=== PATIENT | female | born 1980 | race Caucasian/White ===

== ENCOUNTER → 2023-11-04 12:37 | Outpatient (REF) | payer OTHER, SELFPAY | LOC: HWWDC 12:37 | PROVIDERS: ATTENDING PHYSICIAN Family Medicine | DX: Z12.31 Encounter for screening mammogram for malignant neoplasm of breast (principal) | CPT/HCPCS: 77063; 77067 ==

== ENCOUNTER → 2024-03-23 10:58 | Outpatient (REF) | payer OTHER, SELFPAY | LOC: HWRAD 10:58 | PROVIDERS: ATTENDING PHYSICIAN Family Medicine; REFERRING PHYSICIAN Physical Medicine & Rehabilitation | DX: M54.2 Cervicalgia (principal); M25.512 Pain in left shoulder; I10 Essential (primary) hypertension | CPT/HCPCS: 72052; 73030 ==

== ENCOUNTER → 2024-11-04 12:23 | Outpatient (REF) | payer OTHER, SELFPAY | LOC: HWWDC 12:23 | PROVIDERS: ATTENDING PHYSICIAN Family Medicine | DX: Z12.31 Encounter for screening mammogram for malignant neoplasm of breast (principal) | CPT/HCPCS: 77063; 77067 ==

== ENCOUNTER 2024-11-14 15:14 | Observation (INO) | payer OTHER, SELFPAY ==
[2024-11-14] VITALS (8 sets, daily range): BP systolic 125–159; BP diastolic 73–121; BMI 34.4; BMI 34.5
--- NOTE | 2024-11-14 12:18 | ED.GENMED ---
History of Present Illness
<Gregory Boo PA-C - Last Filed: 11/14/24 14:28>
General
Chief Complaint: Numbness
Source: patient
Exam Limitations: none
Time Seen by Provider: 11/14/24 12:06
History of Present Illness
History of Present Illness:
44-year-old female with history of hypertension on metoprolol and lisinopril thence with the onset of left-sided numbness around 45 minutes prior to my exam. She was walking around the grocery store when this started. She initially felt in the
left laurent. She then felt her face become tingly and her left arm. There is no fever. She notes 2 days ago she had a headache that was consistent with her prior migraine. No current headache. No chest pain or shortness of breath. No fevers or
rashes. She states her father of a stroke. She describes weakness in her arm. She denies any unsteadiness in gait or vision change. She denies dizziness. No prior issues similar to this in the past. No other complaints at this time
Past History
<CLAUDIO Roberts Last Filed: 11/14/24 14:28>
Past History
ED Past Medical History: Hypothyroidism and Other (Preeclampsia)
ED Past Surgical History:
Social History
Tobacco: Non-smoker
Personal:
Living: with family
Phy Exam
<Gregory Boo PA-C - Last Filed: 11/14/24 14:28>
Physical Exam
Physical Exam:
General: Well-appearing female in no acute respiratory distress
HEENT: Normocephalic pupils to light extraocular's are intact face is symmetric
Heart: Regular rate and rhythm
Lungs: Clear no wheeze
Neurologic exam: Alert and orient x 3 face is symmetric no drift on exam finger-nose [id number] intact good sensation bilaterally good strength bilaterally
Extremities: No cyanosis
Vascular: 2+ DP pulse bilaterally 2+ radial pulse bilaterally
Course
<Gregory Boo PA-C - Last Filed: 11/14/24 14:28>
Orders/Labs/Results
Orders:
Orders
11/14/24 12:17
Electrocardiogram (*1) Urgent
Reason for Study: TIA/Stroke
EKG- Treatment ONCE
Test Result ONCE
11/14/24 12:41
Complete Blood Count/With Diff Urgent
Comprehensive Metabolic Panel Urgent
HCG, Serum Qualitative Screen Urgent
11/14/24 12:49
CT HEAD/NECK ANG STROKE ALERT Urgent
Comment:
Reason For Exam: left sided numbness
11/14/24 13:18
Aspirin Chewable [Low Strength Aspirin] 324 mg PO NOW STA
Clopidogrel Bisulfate [Plavix] 300 mg PO NOW STA
11/14/24 14:21
Consult Neurology [NEUROLOGY CONSULT] Routine
Consulting Provider: Jesse Guthrie
Was physician already notified: Yes
Reason for consult: New neurological issues
11/14/24 18:00
Atorvastatin [Lipitor] 40 mg PO QPM
11/15/24 08:00
Aspirin Low Dose EC [Aspir Low (Enteric Coated)] 81 mg PO DAILY
Clopidogrel Bisulfate [Plavix] 75 mg PO DAILY
Abnormal Lab Results
11/14/24
12:41
RBC 4.06 L 10^6/uL
(4.20-5.40)
Hct 34.6 L %
(37.0-47.0)
MPV 10.9 H fL
(7.4-10.4)
Glucose 103 H mg/dl
(70-99)
11/14/24 12:41
11/14/24 12:41
Vital Signs
Initial and Last Documented VS:
Initial Vital Signs
Temp Pulse Resp BP Pulse Ox
98.8 F 70 17 157/104 99
11/14/24 12:04 11/14/24 12:04 11/14/24 12:04 11/14/24 12:04 11/14/24 12:04
Last Documented Vital Signs
Temp Pulse Resp BP Pulse Ox
98.8 F 66 16 159/121 99
11/14/24 12:04 11/14/24 12:30 11/14/24 12:30 11/14/24 12:12 11/14/24 12:30
<Nicolas Olivares, DO - Last Filed: 11/14/24 12:38>
Orders/Labs/Results
Orders:
Orders
11/14/24 12:17
Electrocardiogram (*1) Urgent
Reason for Study: TIA/Stroke
EKG- Treatment ONCE
Test Result ONCE
11/14/24 12:41
Complete Blood Count/With Diff Urgent
Comprehensive Metabolic Panel Urgent
HCG, Serum Qualitative Screen Urgent
11/14/24 12:49
CT HEAD/NECK ANG STROKE ALERT Urgent
Comment:
Reason For Exam: left sided numbness
11/14/24 13:18
Aspirin Chewable [Low Strength Aspirin] 324 mg PO NOW STA
Clopidogrel Bisulfate [Plavix] 300 mg PO NOW STA
11/14/24 14:21
Consult Neurology [NEUROLOGY CONSULT] Routine
Consulting Provider: Jesse Guthrie
Was physician already notified: Yes
Reason for consult: New neurological issues
11/14/24 18:00
Atorvastatin [Lipitor] 40 mg PO QPM
11/15/24 08:00
Aspirin Low Dose EC [Aspir Low (Enteric Coated)] 81 mg PO DAILY
Clopidogrel Bisulfate [Plavix] 75 mg PO DAILY
Abnormal Lab Results
11/14/24
12:41
RBC 4.06 L 10^6/uL
(4.20-5.40)
Hct 34.6 L %
(37.0-47.0)
MPV 10.9 H fL
(7.4-10.4)
Glucose 103 H mg/dl
(70-99)
11/14/24 12:41
11/14/24 12:41
Vital Signs
Initial and Last Documented VS:
Initial Vital Signs
Temp Pulse Resp BP Pulse Ox
98.8 F 70 17 157/104 99
11/14/24 12:04 11/14/24 12:04 11/14/24 12:04 11/14/24 12:04 11/14/24 12:04
Last Documented Vital Signs
Temp Pulse Resp BP Pulse Ox
98.8 F 66 16 159/121 99
11/14/24 12:04 11/14/24 12:30 11/14/24 12:30 11/14/24 12:12 11/14/24 12:30
<Gregory Boo PA-C - Last Filed: 11/14/24 14:28>
MDM/Problems Addressed
Differential Diagnosis Includes:
Onset of left sided numbness about 45 minutes prior to exam. Objectively there is no deficit on neurologic exam the patient describes a subjective crease sensation to her face arm and leg. Consider atypical migraine versus CVA versus hypertensive
response
Will check labs EKG and CT of head
<Gregory Boo PA-C - Last Filed: 11/14/24 14:28>
*Pulse Oximetry
SaO2: 99
Oxygen Mode of Delivery: Room air
Patient hypoxic: no
*Critical Care Note
Total Time (30-74mins, 75-104mins- exclusive of procedures): Not Applicable
<Gregory Boo PA-C - Last Filed: 11/14/24 14:28>
Update Note
Update Note:
Discussed findings with the emergency room attending as well as neurology. Per neurology we will order CT angio of the head and neck as well as a perfusion study. Stroke alert was called secondary to the weakness in a young person. Neurology did
send some left-sided weakness. CT angio was negative. Neurology did order aspirin and Plavix and will keep in hospital for further stroke workup
ED Attending Note
<Gregory Boo PA-C - Last Filed: 11/14/24 14:28>
-
Portions of this chart may have been created with voice recognition software.� Occasional wrong word or��sound alike� substitutions may have occurred due to the inherent limitations of voice recognition software.
<Nicolas Olivares DO - Last Filed: 11/14/24 12:38>
ED Attending Note
Patient seen and examined by attending physician: Yes
I performed a history and physical exam of patient and discussed management with resident, I reviewed resident's note and agree with documented findings and plan of care.: Yes
ED Attending Note:
I evaluated the patient at bedside. She has an NIHSS equals 0 on exam but she continues to have some left lower greater than left upper and left facial paresthesias. She has no sensorimotor deficits on exam. Neurology notified.
Discharge Plan
Departure
Patient Disposition: Admit
Date of Disposition: 11/14/24
Time of Disposition: 14:27
Presentation/result/management discussed w/ accepting MD/DO: Hospitalist
Discharge Problem:
Numbness on left side
Prescriptions:
No Action
lisinopril 5 MG tablet
5 mg PO DAILY
Referrals:
Farhan Carlisle MD [Family Provider, [facility]]
Interventions
Interventions:
*Risk Screen - Suicide Last Done: 11/14/24 12:05
*General Assessment Last Done: 11/14/24 12:05
*Neglect/Abuse Screening Last Done: 11/14/24 12:05
*ED- Fall Risk Assessment Last Done: 11/14/24 12:29
*ED COVID-19 Vaccine History Last Done: 11/14/24 12:05
ED- Neurological Assessment Last Done: 11/14/24 12:51
Discharge Date and Time
Print Language: ICELANDIC
[2024-11-14 12:56] LABS: Hematocrit 34.6 % (37.0-47.0); Hemoglobin 12.3 g/dL (12.0-16.0); Mean Corp Hgb Conc. 35.5 g/dL (33.0-37.0); Mean Corpuscular Volume 85.2 fL (81.0-99.0); Nucleated Red Blood Cells % 0 %; Platelet Count 218 10^3/uL (130-400); Red Cell Dist. Width 12.0 % (11.5-14.5)
[2024-11-14 12:59] LABS: HCG, Serum Qualitative Screen Negative
[2024-11-14 13:03] LABS: ALT (SGPT) 15 U/L (0-35); AST (SGOT) 27 U/L (14-36); Albumin 4.5 g/dl (3.5-5.0); Alkaline Phosphatase 56 U/L (38-126); Blood Urea Nitrogen 12 mg/dl (7-17); Calcium 9.4 mg/dl (8.4-10.2); Carbon Dioxide 25 mmol/L (22-30); Chloride 106 mmol/L (98-107); Estimated Creatinine Clearance 111 ml/min; Glucose 103 mg/dl (70-99); Potassium 4.3 mmol/L (3.5-5.1); Sodium 139 mmol/L (135-145); Total Protein 7.0 g/dl (6.3-8.2); eGFR > 60.00
--- NOTE | 2024-11-14 14:22 | CON.NEURO ---
Neuro Assessment/Plan
Assessment
head CT imgs rev'd, normal
CTA head/neck imgs rev'd, no LVO, no atherosclerosis, no dissection
44 year old woman, suspect acute stroke, NIH 3 but subtle, discussed risks/benefits of TNK with patients, patient feels deficits are mild and non disabling, so no TNK
Loading ASA/Plavix, 21 days of DAPT, Lipitor 40 for now
stroke in person <50 years old often not due to atherosclerosis, and would fully work up including MRI brain, ECHO, THEODORE if no clear cause
check folate, b12, ESR, CRP, lipids for now
Consultation
Order
Date of Consultation: 11/14/24
Requesting Provider: Ema
Reason for Consult: Stroke
Subjective/Objective
Subjective Data
Date of Service: November 14, 2024
LKN 11:30 am
patient developed numbness/tingling started left leg, then left arm, then left face. there is left sided weakness. symptoms are mild and patient does not feel that they are disabling. initially not called as a stroke alert as the ED physician did
not appreciate subtle left sided deficits.
Objective Data
Vital Signs
Temp Pulse Resp BP Pulse Ox
37.1 C 66 16 159/121 99
11/14/24 12:04 11/14/24 12:30 11/14/24 12:30 11/14/24 12:12 11/14/24 12:30
Lab Results
11/14/24 12:41
11/14/24 12:41
Sodium 139 mmol/L (135-145) 11/14/24 12:41
Potassium 4.3 mmol/L (3.5-5.1) 11/14/24 12:41
BUN 12 mg/dl (7-17) 11/14/24 12:41
Glucose 103 mg/dl (70-99) H 11/14/24 12:41
Calcium 9.4 mg/dl (8.4-10.2) 11/14/24 12:41
Patient Allergies
No Known Allergies Allergy (Verified 11/14/24 12:04)
CVA Assessment
Onset of Stroke Symptoms
Onset of symptoms known: Yes
Date of onset of symptoms: 11/14/24
Time of onset of symptoms: 11:30
NIH Stroke Score
Level of Consciousness: 0 - Alert
LOC Questions: 0-Answers both correctly
LOC Commands: 0-Performs both correctly
Best Horizontal Gaze: 0-Normal
Visual Benites: 0=Normal, no visual loss
Facial Palsy: 0=Normal, symmetrical
Motor - Right Arm: 0=No drift 10 seconds
Motor - Left Arm: 1=Drift < 10 seconds
Motor - Right Le-No drift 5 seconds
Motor - Left Le-Drift < 5 seconds
Limb Ataxia: 0-Absent
Sensation: 1-Mild loss
Best Language: 0-No aphasia
Dysarthria: 0-Normal
Extinction and Inattention: 0-No abnormality
NIH Total Score:: 3
Physical Exam
-
AAOx3, speech clear, language intact
VFF, EOMI, face symmetric
subtle left sided weakness, left pronator drift
Medications
-
Active Medications
Generic Name Dose Route Start Last Admin
Trade Name Freq PRN Reason Stop Dose Admin
Aspirin 81 mg 11/15/24 08:00
Aspirin 81 Mg (Enteric Coated) Tablet PO 12/13/24 07:59
DAILY JAMA
Atorvastatin Calcium 40 mg 11/14/24 18:00
Atorvastatin (Lipitor) 40 Mg Tablet PO 12/12/24 17:59
QPM JAMA
Clopidogrel Bisulfate 75 mg 11/15/24 08:00
Clopidogrel 75 Mg Tablet PO 12/05/24 08:01
DAILY JAMA
Home Medications
�Medication �Instructions �Recorded
lisinopril 5 mg tablet 5 mg PO DAILY Blood pressure 10/03/21
[2024-11-14] MEDS: PLAVIX 300 MG PO (14:33)
[2024-11-14] MEDS: LOW STRENGTH ASPIRIN 324 MG PO (14:33)
--- NOTE | 2024-11-14 15:05 | HPS.HSE ---
Family Physician
-
Family Physician: Farhan Carlisle
Chief Complaint
-
Left Sided Numbness
History of Present Illness
Patient is a 44 y/o female past medical history of hypertension, migraine headache including prior ocular migraine who presents with left sided numbness and tingling. Patient was out shopping when she developed left posterior leg numbness.
Initially she this was not bothersome as she has prior history of sciatic. However symptoms worsened and she developed left arm and facial numbness which prompted her to come to the emergency department for evaluation. Patient reports symptoms
remain during my evaluation with initial onset at abou 11:30 this morning.
Medical History
Past Medical History
Past Medical History: Reports Other
Additional Past Medical History:
Essential Hypertension
Migraine Headache / Ocular Migraine
Past Surgical History: Reports None
Social History
Tobacco: Non-smoker
Alcohol: Occasional
Family History
Family History: Other (Father: of massive stroke or heart attack)
Allergies / Home Medications
Allergies reflects when Allergies were last updated in [employer].
Home Medications with original date entered in [employer]
Allergy/Medication List:
Allergies
Allergy/AdvReac Type Severity Reaction Status Date / Time
No Known Allergies Allergy Verified 11/14/24 12:04
Home Medications
lisinopril 20 mg tablet 20 mg PO DAILY 11/14/24
metoprolol succinate 25 mg tablet,extended release 24 hr 25 mg PO DAILY 11/14/24
Review of Systems
-
A 12 point ROS was completed and negative except as noted: Yes
Constitutional: Denies Fever or Chills
Respiratory: Denies Cough or Trouble Breathing
Cardiac: Denies Chest Pain or Palpitations
Abdomen/GI: Denies Abdominal Pain, Nausea, Vomiting or Diarrhea
Neurological: Reports See HPI and Headache (Patient reports she did have a headache on Friday evening)
Physical Exam
Vital Signs
Vital Signs
Temp Pulse Resp BP Pulse Ox
98.8 F 66 16 159/121 99
11/14/24 12:04 11/14/24 12:30 11/14/24 12:30 11/14/24 12:12 11/14/24 12:30
Physical Exam
General: Comfortable and Conversant
HEENT: Anicteric and Moist mucous membranes
Respiratory: Clear and Non Labored Respirations
Cardiac: S1/S2 and Irregular Rhythm
GI: Soft and Non Tender
Rectal: Deferred by Provider
Musculoskeletal: No Clubbing, No Cyanosis and No Edema
Skin: Warm and Dry
Neuro: Awake, Alert, Oriented and No Motor Deficits; No Slurred Speech or Facial Droop
Psych: Calm
Laboratory Results
-
11/14/24 12:41
11/14/24 12:41
Laboratory Results
Total Bilirubin 0.7 mg/dl (0.2-1.3) 11/14/24 12:41
AST 27 U/L (14-36) 11/14/24 12:41
ALT 15 U/L (0-35) 11/14/24 12:41
Alkaline Phosphatase 56 U/L (38-126) 11/14/24 12:41
Data Reviewed
-
Lab Data: Labs Reviewed by me
Impression/Plan
-
Left Sided Numbness
-Consult Neurology
-Check Brain MRI
-Continue Aspirin and Plavix
-Continue Lipitor
-Check HgbA1c and Lipitor
-Consult PT/OT
Essential Hypertension
-Allow permissive hypertension for 24 hours after onset of symptoms
-Continue lisinopril and metoprolol
DVT proph: SCDs
Code Status: Full Code
[2024-11-14] MEDS: LIPITOR 40 MG PO (17:30)
[2024-11-14 18:55] LABS: Folate > 20.0 ng/ml (2.76-20); Vitamin B12 404 pg/ml (239-931)
--- NOTE | 2024-11-14 19:01 | W.PN.UPDATE ---
Update Note
Progress Note Update
44 y/o woman with a past medical history of:
hypertension,
migraine headache
prior ocular migraine
presents with left sided numbness and tingling. She was out shopping when she developed left posterior leg numbness. Initially this was not bothersome, as she has a known prior history of sciatic. However, her symptoms worsened and she then
developed left arm and facial numbness. At the time of the interview, symptoms continued.
Past Medical History
Essential Hypertension
Migraine Headache / Ocular Migraine
Physical Exam
General: Comfortable
Respiratory: Clear
Cardiac: S1/S2
GI: Soft
Skin: Warm
Psych: Calm
Impression/Plan
1. Left Sided Numbness
Neurology consult
Brain MRI
Aspirin and Plavix
Lipitor
Consult PT/OT
2. Essential Hypertension
permissive hypertension for 24 hours
Continue lisinopril and metoprolol
See PA note for full details.
--- NOTE | 2024-11-14 19:15 | TRANSFER ---
pt arrives from Er at 1620. pt able to walk into room under her own power. aaox3, vitals stable. mother at bedside. NIH of 1 for this RN. passed swallow testing. oriented to unit and plan of care gone over. stroke packet and education provided,
pt receptive. pt tolerated dinner without issue. pt pending ECHO and MRI. [facility]. plan of care continues to be followed.
[2024-11-15 03:45] VITALS: BP 116/74
[2024-11-15 07:25] VITALS: BP 130/86
[2024-11-15] MEDS: ZESTRIL 20 MG PO (07:28)
[2024-11-15] MEDS: PLAVIX 75 MG PO (07:28)
[2024-11-15] MEDS: TYLENOL 650 MG PO (07:28)
[2024-11-15] MEDS: ASPIR LOW (ENTERIC COATED) 81 MG PO (07:28)
[2024-11-15 09:02] LABS: Hematocrit 36.9 % (37.0-47.0); Hemoglobin 13.2 g/dL (12.0-16.0); Mean Corp Hgb Conc. 35.8 g/dL (33.0-37.0); Mean Corpuscular Volume 85.8 fL (81.0-99.0); Platelet Count 235 10^3/uL (130-400); Red Cell Dist. Width 12.3 % (11.5-14.5)
[2024-11-15 09:22] LABS: Blood Urea Nitrogen 13 mg/dl (7-17); Calcium 9.5 mg/dl (8.4-10.2); Carbon Dioxide 26 mmol/L (22-30); Chloride 105 mmol/L (98-107); Estimated Creatinine Clearance 111 ml/min; Glucose 106 mg/dl (70-99); HDL Cholesterol 43 mg/dl; LDL Cholesterol, Calculated 127 mg/dl; Magnesium 2.1 mg/dl (1.6-2.3); Potassium 4.6 mmol/L (3.5-5.1); Sodium 138 mmol/L (135-145); Very Low Density Lipoprotein 34 mg/dl (0-30); eGFR > 60.00
[2024-11-15 09:26] LABS: C-Reactive Protein < 5.00 mg/L (0.0-10.00)
--- NOTE | 2024-11-15 09:26 | W.PN.NEURO.1 ---
Addendum entered and electronically signed by Farhan Azul MD 11/15/24 13:42:
Studies reviewed.
I have personally examined the patient. I reviewed and agree with the BUILDING MAINTENANCE CUSTODIAN's Note.
My addenda:
Awake, alert, interactive. No acute distress.
Speech intact.
Follows 2-step requests w/o difficulty. No tremor.
Extra-ocular movements grossly intact.
Facial movements full and symmetric. Hearing intact to normal conversational volume.
Normal UE movements bilaterally.
Neck: full ROM.
Chest: no dyspnea
Heart: no JVD
Ext: (-) Clubbing, (-) Cyanosis, (-) Edema
IMPRESSIONS/RECOMMENDATIONS:
Abrupt onset of left arm and facial sensation change
Differential diagnosis includes TIA, migraine with aura especially in light of absence of changes by MRI of brain. Low B12 may also be associated with the patient symptomatology
Initiate B12 replacement
Continue aspirin
Discontinue clopidogrel
Consider MRI imaging of the cervical spine
Consider additional blood work including NITA
D/W patient / family
All questions answered.
Will continue to follow patient.
Original Note:
Documented by User: Gerri Young NP 11/15/24 12:46
Today's Communication / Plan
-
-Start B12 supplementation level borderline low at 404
-LDL 127 continue atorvastatin 40 mg nightly
-continue aspirin may stop clopidogrel no evidence of stroke on brain MRI
-goal normotension
Neuro Assessment/Plan
Assessment
Patient is a 44 y/o female past medical history of hypertension, migraine headache including prior ocular migraine who presented to [facility] on 11/14/2024 with left sided numbness and tingling.
head CT imgs rev'd, normal
CTA head/neck imgs rev'd, no LVO, no atherosclerosis, no dissection
brain MRI no acute intracranial abnormality.
Labs: B12 404, LDL 127
Plan
Impression: abrupt onset of numbness and tingling possibly due to TIA vs migraine
-Start B12 supplementation level borderline low at 404
-LDL 127 continue atorvastatin 40 mg nightly
-continue aspirin may stop clopidogrel no evidence of stroke on brain MRI
-goal normotension
All questions ecouraged and answered, plan of care discussed with Dr. Azul, patient and family.
Subjective/Objective
Subjective Data
Date of Service: November 15, 2024
No acute overnight events. Patient states she feels better this morning. Denies numbness. Neuro exam unremarkable. History of migraine with aura typically lasts a few hours, brother also has migraines. Does not take medication for her headaches.
Objective Data
Vital Signs
Temp Pulse Resp BP Pulse Ox
97.6 F 55 18 130/86 92
11/15/24 07:25 11/15/24 07:40 11/15/24 07:25 11/15/24 07:25 11/15/24 07:25
Lab Results
11/15/24 08:40
11/15/24 08:40
Sodium 138 mmol/L (135-145) 11/15/24 08:40
Potassium 4.6 mmol/L (3.5-5.1) 11/15/24 08:40
BUN 13 mg/dl (7-17) 11/15/24 08:40
Glucose 106 mg/dl (70-99) H 11/15/24 08:40
Calcium 9.5 mg/dl (8.4-10.2) 11/15/24 08:40
LDL Cholesterol, Calc 127 mg/dl 11/15/24 08:40
Vitamin B12 Cancelled 11/14/24 14:45
Patient Allergies
No Known Allergies Allergy (Verified 11/14/24 12:04)
Physical Exam
-
General: No Apparent Distress and Comfortable
HEENT: Normocephalic, Atraumatic and Anicteric
Neck: Full Range of Motion
Respiratory: No Dyspnea
Cardiac: No JVD
GI: Non-distended
Skin: Unremarkable
Extremities: No Clubbing, No Cyanosis and No Edema
Psych: Unremarkable
Extended Neurological Exam
Mood & Affect: Mood Unremarkable
Attention Span & Concentration: Awake, Alert, Interactive and No Difficulty with 2 Step Request
Memory: Unremarkable
Tremor: Hand Tremor Absent and Head Tremor Absent
Involuntary Movement: None
Speech: Quality Unremarkable, Quantity Unremarkable and Rate of Production Unremarkable
Cranial Nerve II: Left Eye: Pupillary Reactivity Unremarkable, Pupillary Size Unremarkable and Visual Benites Intact
Cranial Nerve II: Right Eye: Pupillary Reactivity Unremarkable, Pupillary Size Unremarkable and Visual Benites Intact
Cranial Nerves III, IV, : Extraocular Movement: Extraocular Movement Full in all Directions
Cranial Nerve VII: Facial Symmetry: Normal Facial Symmetry
Cranial Nerve VIII: Hearing: Unremarkable Hearing to Normal Conversational Volume
Muscle Strength, Overall: Full Throughout
Pronator Drift: No Drift in Upper Extremities and No Drift in Lower Extremities
Coordination: [id number] Testing Unremarkable and Reaches for Objects without Difficulty
Data Reviewed
-
CT-A: Report Reviewed and Image Reviewed
MRI Head: Report Reviewed and Image Reviewed
Labs: Report Reviewed
Lipid Profile: Report Reviewed
Reviewed with: Physician, Patient and Family
Old Records: Summarized

Documented by User: Farhan Azul MD 11/15/24 13:41
Neuro Assessment/Plan
Assessment
head CT imgs rev'd, normal
CTA head/neck imgs rev'd, no LVO, no atherosclerosis, no dissection
44 year old woman normal MRI of brain and minimal risk factors for stroke
Plan
Start B12 supplementation
Discontinue clopidogrel for now
OK to continue aspirin for now
[2024-11-15] MEDS: VITAMIN B-12 1000 MCG PO (11:00)
--- NOTE | 2024-11-15 13:16 | W.DS.TRANS ---
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
-
Discharge Instructions:
Discharge Diagnosis/Procedures Atypical migraine
Diet Regular
Instructions:
Stand-Alone Forms:
Changes to Home Medications: Yes
Discharge Medications:
DC Medications w/original date entered in [employer]
lisinopril 20 mg tablet 20 mg PO DAILY Blood Pressure 11/14/24
metoprolol succinate 25 mg tablet,extended release 24 hr 25 mg PO DAILY Blood Pressure 11/14/24
aspirin 81 mg tablet,delayed release 81 mg PO DAILY #30 tabs 11/15/24
atorvastatin 40 mg tablet 40 mg PO QPM #30 tabs 11/15/24
cyanocobalamin (vitamin B-12) 1,000 mcg tablet (Vitamin B-12) 1,000 mcg PO DAILY #30 tabs 11/15/24
Home Medication Changes
ASA, statin, B12 initiated
Pending Results: No
--- NOTE | 2024-11-15 13:31 | CM ---
trauma program manager reviewed patient's chart and met with patient and patient is OBS patient, OBS letter completed and placed on chart. Family at bedside, patient reports that she lives with her children in a multilevel home, patient is independent with
adl's and ambulation, no dme, home no needs.
PCP: Dr Carlisle
Pharmacy: [facility] in [place]
[2024-11-15 14:46] LABS: Glycohemoglobin (HgbA1c) 5.0 % (4.0-5.6)
== END 2024-11-15 13:29 | disposition home or self-care (01) ==
LOC: 4 WEST ACU 15:14
PROVIDERS: Physician Assistant; ADMITTING PHYSICIAN Internal Medicine; ATTENDING PHYSICIAN Internal Medicine; CONSULT PHYSICIAN Psychiatry & Neurology Clinical Neurophysiology; EMERGENCY PHYSICIAN Emergency Medicine; FAMILY PHYSICIAN Family Medicine
DX: G43.009 Migraine without aura, not intractable, without status migrainosus (principal); R20.0 Anesthesia of skin; I10 Essential (primary) hypertension; R53.1 Weakness; I49.3 Ventricular premature depolarization; E03.9 Hypothyroidism, unspecified; R00.1 Bradycardia, unspecified; I34.0 Nonrheumatic mitral (valve) insufficiency; Z79.02 Long term (current) use of antithrombotics/antiplatelets; Z79.82 Long term (current) use of aspirin; Z91.148 Patient's other noncompliance with medication regimen for other reason; Z79.899 Other long term (current) drug therapy
CPT/HCPCS: 70496; 70498; 70551; 80048; 80053; 80061; 82607; 82746; 83036; 83090; 83735; 84703; 85025; 85027; 85652; 86140; 93005; 93306; 99285; G0378; Q9967